=== PATIENT | female | born 1970 | race Caucasian/White ===

== ENCOUNTER → 2021-12-24 | Outpatient (CLI) | payer MEDICARE ==
[~2021-12-24] MED LIST: AMLODIPINE BESYL5 MG PO; CHRONULAC20 GM/30 M PO; ELAVIL 25 MG TA25 MG PO; IPRAT-ALBUT 0.5-3 ML INH; METOPROLOL SUCC25 MG PO; SINGULAIR10 MG PO; SUBOXONE 8 MG-1 EACH SL; SYMBICORT 16010.2 GM INH
== END ==
LOC: US 11:21
DX: M79.89 Other specified soft tissue disorders (principal)
CPT/HCPCS: 93971

== ENCOUNTER → 2022-02-08 | Outpatient (CLI) | payer MEDICARE | LOC: EXRD 14:25 | DX: J44.9 Chronic obstructive pulmonary disease, unspecified (principal) | CPT/HCPCS: 71046 ==

== ENCOUNTER → 2022-02-16 | Outpatient (CLI) | payer MEDICARE | LOC: KOH-I 10:11 | DX: R10.11 Right upper quadrant pain (principal); K80.20 Calculus of gallbladder without cholecystitis without obstruction; K74.60 Unspecified cirrhosis of liver | CPT/HCPCS: 76705 ==